=== PATIENT | male | born 1955 | race Caucasian/White ===

== ENCOUNTER 2021-04-19 09:24 | Day surgery (SDC) | payer MEDICARE ==
[2021-04-14 13:08] LABS: CLARITY,URINE CLEAR (Clear); COLOR,URINE YELLOW (Yellow); GLUCOSE, URINE NEGATIVE (Neg); PROTEIN,URINE 100 mg/dl (Neg); UA COLLECTION TYPE CLN CATCH MIDSTREAM
[2021-04-14 13:09] LABS: KETONES,URINE 40 mg/dl (Neg); LEUKOCYTE ESTERASE ,URINE NEGATIVE (Neg); NITRITES, URINE NEGATIVE (Neg); OCCULT BLOOD,URINE NEGATIVE (Neg); UROBILINOGEN,URINE 0.2 E.U/dL (0.2-1.0)
[2021-04-14 13:12] LABS: BASOPHILS % (AUTO) 0.6 % (0-1); EOSINOPHILS # (AUTO) 0.1 X10'3 (0-0.9); LYMPHOCYTES # (AUTO) 2.2 X10'3 (1.1-4.8); LYMPHOCYTES % (AUTO) 45.3 % (21-51); MEAN CORPUSCULAR HEMOGLOBIN 30.2 PG (27.0-31.0); MEAN CORPUSCULAR HGB CONC 33.8 g/dL (33.0-36.5); MEAN CORPUSCULAR VOLUME 89.3 FL (78-98); MEAN PLATELET VOLUME 7.6 FL (7.4-10.4); MONOCYTES # (AUTO) 0.6 X10'3 (0-0.9); MONOCYTES % (AUTO) 11.1 % (2-12); PRE OP HEMOGLOBIN 16.9 g/dL (14.0-17.9); PRE OP PLATELET COUNT 261 X10'3 (140-440); RED BLOOD COUNT 5.59 X10'6 (4.70-6.10); RED CELL DISTRIBUTION WIDTH 15.9 % (11.5-14.5)
[2021-04-14 13:13] LABS: BACTERIA,URINE FEW /HPF (Neg); RBC,URINE 0-2 /HPF (0-2); SQUAMOUS EPITHELIAL CELL,UR FEW /LPF (FEW); WBC,URINE 0-4 /HPF (0-4)
[2021-04-14 13:20] LABS: PRE OP PROTIME 10.7 SECONDS (9.0-12.0)
[2021-04-14 13:24] LABS: ALBUMIN 3.7 G/DL (3.4-5.0); ALBUMIN/GLOBULIN RATIO 0.8 (1.1-1.5); ALKALINE PHOSPHATASE 85 IU/L (46-116); BLOOD UREA NITROGEN 17 MG/DL (7-18); BUN/CREATININE RATIO 14.3 (5.4-32.0); CALCIUM 9.1 MG/DL (8.5-10.1); CHLORIDE 105 MMOL/L (99-107); CREATININE 1.19 MG/DL (0.60-1.10); PRE OP ALT 31 U/L (30-65); PRE OP ANION GAP 11 (8-16); PRE OP AST 21 U/L (10-37); PRE OP BILIRUB, TOTAL 0.5 MG/DL (0.0-1.0); PRE OP GLUCOSE 103 MG/DL (70-104); PRE OP POTASSIUM 4.2 MMOL/L (3.4-5.1); PRE OP SODIUM 142 MMOL/L (135-145); TOTAL CARBON DIOXIDE 25.7 MMOL/L (24-32); TOTAL PROTEIN 8.3 G/DL (6.4-8.2); eGFR 62 ML/MIN
[2021-04-19] VITALS (12 sets, daily range): BP systolic 98–158; BP diastolic 65–105
[~2021-04-19] VITALS: Ht 172.7 cm; Wt 88.0 kg
[~2021-04-19 09:24] MED LIST: NO HOME MEDS; cefazolin/dext.iso 2gm/50ml 50 ML IV ONE; famotidine 20mg tablet PO ONE; ringers solution, lacted 1,000 ML IV SCH
[2021-04-19] MEDS ORDERED: labetalol 20mg/4ml (5mg/ml) syringe IV PRN ×2 (19:20→21:00)
[2021-04-19] MEDS ORDERED: morphine 2 MG/ML inj. syringe IV PRN ×2 (19:20→21:00)
[2021-04-19] MEDS ORDERED: fentaNYL/PF 50MCG/1 ML 2ML syringe IV PRN ×2 (19:20)
[2021-04-19] MEDS ORDERED: ondansetron/PF 4mg/2ml inj IV PRN ×2 (19:20→21:00)
[2021-04-19] MEDS ORDERED: hydrALAZINE 20mg/ml inj. IV PRN (19:20)
[2021-04-19] MEDS ORDERED: ringers solution, lacted 1,000 ML IV SCH ×2 (19:20→21:00)
[2021-04-19] MEDS ORDERED: morphine 4 MG/ML inj SYRINge IV PRN (19:20)
[2021-04-19] MEDS ORDERED: BUPIVAcaine/PF 2.5mg/ml (0.25%) 10ml vial ONE (19:58)
[2021-04-19] MEDS ORDERED: ceFAZolin 1000mg inj ONE (19:59)
[2021-04-19] MEDS ORDERED: ondansetron/PF 4mg/2ml inj ONE (20:12)
[2021-04-19] MEDS ORDERED: sevoflurane 250ml liquid IH ONE (20:12)
[2021-04-19] MEDS ORDERED: fentaNYL /PF 50mcg/ml 5ml ampule ONE (20:20)
[2021-04-19] MEDS ORDERED: midazolam 1 mg/ML 2ml injection ONE (20:20)
[2021-04-19] MEDS ORDERED: propofol inj 20 ML IV ONE (20:22)
[2021-04-19] MEDS ORDERED: rocuronium 10mg/ml inj IV ONE (20:22)
[2021-04-19] MEDS ORDERED: dexamethasone sod phosphate 4mg/ml inj. ONE (20:45)
[2021-04-19] MEDS ORDERED: proCHLORperazine 10 MG/2 ml inj IV PRN (21:00)
[2021-04-19] MEDS ORDERED: meperidine/PF 25mg/ml syringe IV PRN ×3 (21:00)
[2021-04-19] MEDS ORDERED: neostigmine methylsulfate 1 MG/ML 10ml vial ONE (21:31)
[2021-04-19] MEDS ORDERED: glycopyrrolate 0.2mg/ml inj ONE (21:31)
--- NOTE | 2021-04-19 21:37 | NUR ---
Received from OR via , accompanied by Anesthesiologist DR GODINEZ and report given by Anesthesiolgist. PT WAKES TO VOICE, SKIN WARM AND PINK, MOVING EXT X 4, PT MOANING IN PAIN AND DR GODINEZ GAVE FENTANYL FROM THE OR, SCDS, 3 LAP SITES WITH DERMABOND AND KIERAN, SANG DRAINAGE FROM SITES, WASHED AREA AND PLACED 4X4'S OVER THE TOP OF LAP SITES, PIV LEFT HAND 20G 100ML/HR, VSS.
--- NOTE | 2021-04-19 21:37 | NUR ---
OR NURSE POINTED OUT RAISED AREA ON ABDOMEN THAT IS SOFT TO TOUCH. ANESTHESIOLOGIST STATED THAT IT IS A GAS BUBBLE FROM THE CO2 GAS.
[2021-04-19] MEDS: morphine 4 MG/ML inj SYRINge IV PRN ×2 (22:07→22:24)
--- NOTE | 2021-04-19 22:18 | NUR ---
Report called to receiving nurse. Transferred via BED Belongings . Special Issues communicated to receiving nurse PAT RN. PT IS AWAKE AND ORIENTED, SKIN WARM AND PINK, LAP SITE CD, SCD'S, PAIN MANAGED WITH IV PAIN MEDICATION, GAS BUBBLE ON ABD STILL PRESENT AND SOFT TO TOUCH, DARIUS ICE CHIPS, VSS, MEETS DISCHARGE CRITERIA.
[2021-04-19] MEDS ORDERED: ipratropium/albuterol 3ml nebule NEB PRN (22:25)
[2021-04-19] MEDS: normal saline 1000ml 1,000 ML IV SCH (22:45)
[2021-04-20] VITALS (8 sets, daily range): BP systolic 119–141; BP diastolic 79–102
[2021-04-20] MEDS: HYDROcodone/acetaminophen 10/325mg tab PO PRN ×3 (00:24→11:14)
--- NOTE | 2021-04-20 06:30 | NUR ---
Patient in room . I have received report from Pat RN and had the opportunity to ask questions and assume patient care.
[2021-04-20] MEDS: normal saline 1000ml 1,000 ML IV SCH (08:43)
[2021-04-20] MEDS ORDERED: HYDR-3972 PO (13:41)
--- NOTE | 2021-04-20 14:00 | NUR ---
Patient alert and oriented X3 at the time of discharge,O2 is 95 on RA. IV taken out. all personal item given back to patient. Discharge instruction given to patient. patient verbalized understanding of instruction given. hospital got a cab for patient, patient left unit with a wheel chair at 1400 accompanied by a nurse assistance to the cab.
[2021-04-21] MEDS ORDERED: OXYC-149 PO (09:19)
== END 2021-04-20 14:35 | disposition home or self-care (01) ==
LOC: PAS 09:24 → SUR 3N 22:50 → PAS 04-20 14:35
PROVIDERS: ATTEND Surgery
DX: K42.0 Umbilical hernia with obstruction, without gangrene (principal); M19.90 Unspecified osteoarthritis, unspecified site; Z20.822 Contact with and (suspected) exposure to COVID-19; Z79.899 Other long term (current) drug therapy; Z79.01 Long term (current) use of anticoagulants; Z87.891 Personal history of nicotine dependence; Z96.641 Presence of right artificial hip joint; Z86.19 Personal history of other infectious and parasitic diseases; Z80.9 Family history of malignant neoplasm, unspecified
CPT/HCPCS: 36415; 49653; 80053; 81001; 82948; 85025; 85610; 85730; 93005; 94760; C1781; J0690; J1100; J2175; J2250; J2270; J2704; J2710; J3010; J3490; J7030; J7120; U0003; U0005; Z7506; Z7508; Z7512; A4215; A4618; A7000; G0378; J2405

== ENCOUNTER 2021-04-21 08:08 | Emergency (ER) | payer MEDICARE ==
[~2021-04-21] VITALS: Ht 170.2 cm; Wt 90.9 kg
[~2021-04-21 08:08] MED LIST changes: +HYDR-3972 PO; -cefazolin/dext.iso 2gm/50ml 50 ML IV ONE; -famotidine 20mg tablet PO ONE; -ringers solution, lacted 1,000 ML IV SCH
[2021-04-21] MEDS ORDERED: morphine 2 MG/ML inj. syringe IV ONE (08:35)
[2021-04-21] MEDS ORDERED: ondansetron 4mg rapidly disintigrating tab PO ONE (08:35)
[2021-04-21 09:01] LABS: BASOPHILS % (AUTO) 0.3 % (0-1); EOSINOPHILS % (AUTO) 0.1 % (0-6); HEMATOCRIT 49.3 % (42.0-52.0); HEMOGLOBIN 16.1 g/dl (14.0-17.9); LYMPHOCYTES # (AUTO) 1.2 X10'3 (1.1-4.8); LYMPHOCYTES % (AUTO) 19.6 % (21-51); MEAN CORPUSCULAR HEMOGLOBIN 29.9 PG (27.0-31.0); MEAN CORPUSCULAR HGB CONC 32.7 g/dL (33.0-36.5); MEAN CORPUSCULAR VOLUME 91.3 FL (78-98); MEAN PLATELET VOLUME 8.1 FL (7.4-10.4); MONOCYTES # (AUTO) 0.6 X10'3 (0-0.9); MONOCYTES % (AUTO) 10.4 % (2-12); NEUTROPHILS # (AUTO) 4.2 X10'3 (1.8-7.7); NEUTROPHILS % (AUTO) 69.6 % (42-75); PLATELET COUNT 223 X10'3 (140-440); RED CELL DISTRIBUTION WIDTH 15.9 % (11.5-14.5)
[2021-04-21] MEDS ORDERED: OXYC-149 PO (09:19)
[2021-04-21 09:34] LABS: ANION GAP 8 (8-16); BLOOD UREA NITROGEN 25 MG/DL (7-18); BUN/CREATININE RATIO 18.8 (5.4-32.0); CALCIUM 8.5 MG/DL (8.5-10.1); CHLORIDE 104 MMOL/L (99-107); CREATININE 1.33 MG/DL (0.60-1.10); GLUCOSE 116 MG/DL (70-104); POTASSIUM 4.1 MMOL/L (3.5-5.1); SODIUM 138 MMOL/L (135-145); TOTAL CARBON DIOXIDE 25.9 MMOL/L (24-32); eGFR 54 ML/MIN
[2021-04-21 09:35] LABS: ALANINE AMINOTRANSFERASE 28 U/L (12-78); ALBUMIN 3.5 G/DL (3.4-5.0); ALBUMIN/GLOBULIN RATIO 0.8 (1.1-1.5); ALKALINE PHOSPHATASE 54 IU/L (46-116); ASPARTATE AMINO TRANSFERASE 37 U/L (10-37); BILIRUBIN,TOTAL 0.9 MG/DL (0.1-1.0); MAGNESIUM 2.2 MG/DL (1.5-2.4); TOTAL PROTEIN 7.7 G/DL (6.4-8.2)
[2021-04-21 09:56] LABS: D-DIMER 1.76 MG/L FEU (0-0.50)
[2021-04-21] MEDS ORDERED: iohexol 350MG/ML 100ml bottle IV ONE (10:00)
[2021-04-21 11:59] VITALS: BP 153/98
== END 2021-04-21 12:24 | disposition home or self-care (01) ==
LOC: ER 08:09
DX: G89.18 Other acute postprocedural pain (principal); R06.02 Shortness of breath; K42.9 Umbilical hernia without obstruction or gangrene; R11.0 Nausea; Z79.899 Other long term (current) drug therapy
CPT/HCPCS: 36415; 71275; 80053; 83735; 84145; 85025; 85379; 96374; 99285; J2270; Q9967

== ENCOUNTER 2021-12-26 09:07 | Emergency (ER) | payer MEDICARE ==
[~2021-12-26] VITALS: Ht 175.3 cm; Wt 93.2 kg
[~2021-12-26 09:07] MED LIST changes: -HYDR-3972 PO; +OXYC-149 PO
[2021-12-26 09:15] VITALS: BP 192/111
== END 2021-12-26 12:48 | disposition left against medical advice (07) ==
LOC: ER 09:08
DX: N20.0 Calculus of kidney (principal); Z53.21 Procedure and treatment not carried out due to patient leaving prior to being seen by health care provider

== ENCOUNTER → 2022-08-23 | Emergency (ER) | payer MEDICARE ==
[~2022-08-23] VITALS: Ht 175.3 cm; Wt 90.9 kg
[~2022-08-23] MED LIST changes: +SULF1TAB49 PO; +TETanus/Pertussis (Acell)/Diphther VAC/PF (Tdap-Adult) 0.5ml syringe IMVAC ONE; +bacitracin 15gm ointment TP ONE; +sulfamethoxazole/trimethoprim DS (800/160mg) tablet PO ONE
[2022-08-23 21:38] VITALS: BP 166/114
== END | disposition home or self-care (01) ==
LOC: ER 21:20
DX: L02.611 Cutaneous abscess of right foot (principal)
CPT/HCPCS: 10060; 90471; 90715; 99283

== ENCOUNTER 2023-06-25 16:38 | Inpatient (IN) | payer MEDICARE ==
[~2023-06-25] VITALS: Ht 175.3 cm; Wt 95.5 kg
[~2023-06-25 16:38] MED LIST changes: +ALBU8HFA INH; +LEVO750T68 PO; -OXYC-149 PO; -SULF1TAB49 PO; -TETanus/Pertussis (Acell)/Diphther VAC/PF (Tdap-Adult) 0.5ml syringe IMVAC ONE; -bacitracin 15gm ointment TP ONE; -sulfamethoxazole/trimethoprim DS (800/160mg) tablet PO ONE
[2023-06-25 18:32] LABS: BASOPHILS # (AUTO) 0.1 X10'3 (0-0.2); BASOPHILS % (AUTO) 0.7 % (0-1); EOSINOPHILS # (AUTO) 0.4 X10'3 (0-0.9); HEMATOCRIT 46.1 % (42.0-52.0); HEMOGLOBIN 15.3 g/dl (14.0-17.9); LYMPHOCYTES # (AUTO) 1.5 X10'3 (1.1-4.8); LYMPHOCYTES % (AUTO) 12.4 % (21-51); MEAN CORPUSCULAR HEMOGLOBIN 30.5 PG (27.0-31.0); MEAN CORPUSCULAR HGB CONC 33.2 g/dL (33.0-36.5); MEAN CORPUSCULAR VOLUME 91.9 FL (78-98); MEAN PLATELET VOLUME 7.6 FL (7.4-10.4); NEUTROPHILS # (AUTO) 9.3 X10'3 (1.8-7.7); NEUTROPHILS % (AUTO) 75.9 % (42-75); PLATELET COUNT 396 X10'3 (140-440); RED BLOOD COUNT 5.01 X10'6 (4.70-6.10); RED CELL DISTRIBUTION WIDTH 14.9 % (11.5-14.5); WHITE BLOOD COUNT 12.3 X10'3 (4.5-11.0)
[2023-06-25 18:46] LABS: ALANINE AMINOTRANSFERASE 81 U/L (12-78); ALBUMIN 2.3 G/DL (3.4-5.0); ALBUMIN/GLOBULIN RATIO 0.4 (1.1-1.5); ALKALINE PHOSPHATASE 67 IU/L (46-116); ANION GAP 8 (8-16); ASPARTATE AMINO TRANSFERASE 42 U/L (10-37); BILIRUBIN,TOTAL 0.8 MG/DL (0.1-1.0); BLOOD UREA NITROGEN 26 MG/DL (7-18); BUN/CREATININE RATIO 16.7 (10.0-20.0); CALCIUM 8.1 MG/DL (8.5-10.1); CHLORIDE 98 MMOL/L (99-107); CREATININE 1.56 MG/DL (0.60-1.10); GLUCOSE 119 MG/DL (70-104); MAGNESIUM 1.8 MG/DL (1.5-2.4); POTASSIUM 4.5 MMOL/L (3.5-5.1); SODIUM 133 MMOL/L (135-145); TOTAL CARBON DIOXIDE 26.8 MMOL/L (24-32); TOTAL PROTEIN 7.5 G/DL (6.4-8.2); eCRCL 47 ML/MIN; eGFR 45 ML/MIN
[2023-06-25] MEDS ORDERED: methylPREDNISolone sod succ 125mg/2ml vial IV ONE (21:15)
[2023-06-25] MEDS ORDERED: albuterol 2.5 MG/3 ML nebule NEB ONE (21:15)
[2023-06-25] MEDS ORDERED: piperacillin/tazo 3.375gm/50ml 50 ML IV ONE (21:20)
[2023-06-25] MEDS ORDERED: normal saline 1000ML IV soln IV ONE (21:20)
[2023-06-25 21:26] LABS: BILIRUBIN,URINE NEGATIVE (Neg); CLARITY,URINE CLEAR (Clear); COLOR,URINE YELLOW (Yellow); GLUCOSE, URINE NEGATIVE (Neg); KETONES,URINE TRACE mg/dl (Neg); LEUKOCYTE ESTERASE ,URINE NEGATIVE (Neg); NITRITES, URINE NEGATIVE (Neg); OCCULT BLOOD,URINE NEGATIVE (Neg); PH,URINE 5.5 (4.8-8.0); PROTEIN,URINE 30 mg/dl (Neg); UROBILINOGEN,URINE 0.2 E.U/dL (0.2-1.0)
[2023-06-25 21:27] LABS: UA COLLECTION TYPE CLN CATCH MIDSTREAM
[2023-06-25 21:33] VITALS: PULSE 110; RESP 24; O2SAT 91
[2023-06-25 21:44] LABS: BACTERIA,URINE FEW /HPF (Neg); HYALINE CASTS 0-3 /LPF (NEGATIVE); MUCUS STRANDS MODERATE /LPF (Neg); RBC,URINE 0-2 /HPF (0-2); SQUAMOUS EPITHELIAL CELL,UR FEW /LPF (FEW); WBC,URINE 0-4 /HPF (0-4)
[2023-06-25 21:45] LABS: FINE GRANULAR CAST 0-3 /LPF (NEGATIVE)
[2023-06-25] MEDS ORDERED: vancomycin/NS 1 GM ADD-VANTAGE 250 ML IV ONE (22:00)
[2023-06-25] MEDS ORDERED: VANCOMYCIN 750MG IV in NS 250 ML IV ONE (23:30)
[2023-06-26] VITALS (7 sets, daily range): BP systolic 122–150; BP diastolic 61–92; PULSE 95–100; RESP 16–21; TEMP 97.8–98; O2SAT 91–97
[2023-06-26 00:33] LABS: PLATELET ESTIMATE NORMAL; TOTAL CELLS COUNTED 100
[2023-06-26 00:34] LABS: TOXIC GRANULATION 1+; TOXIC VACUOLATION FEW
[2023-06-26] MEDS ORDERED: diphenhydrAMINE 25mg capsule PO PRN (01:55)
[2023-06-26] MEDS ORDERED: acetaminophen 325mg tablet PO PRN ×2 (01:55)
[2023-06-26] MEDS ORDERED: bisacodyl 10mg suppository rectal RC PRN (01:55)
[2023-06-26] MEDS ORDERED: acetaminophen 650mg rectal suppository RC PRN (01:55)
[2023-06-26] MEDS ORDERED: magnesium hydroxide 30ml (MOM) UD suspension PO PRN (01:55)
[2023-06-26] MEDS ORDERED: ondansetron 4mg rapidly disintigrating tab PO PRN (01:55)
[2023-06-26] MEDS ORDERED: ondansetron/PF 4mg/2ml inj IV PRN (01:55)
[2023-06-26] MEDS ORDERED: ipratropium/albuterol 3ml nebule NEB PRN (01:55)
[2023-06-26] MEDS ORDERED: diphenhydrAMINE 50 mg/ml inj IV PRN (01:55)
[2023-06-26] MEDS ORDERED: mag hydrox/Alum hydrox/simeth 30ml oral suspension PO PRN (01:55)
[2023-06-26] MEDS ORDERED: morphine 2 MG/ML inj. syringe IV PRN (01:55)
[2023-06-26] MEDS: normal saline 1000ml 1,000 ML IV SCH ×3 (02:47→21:55)
[2023-06-26] MEDS: pantoprazole 40mg Tablet.DR PO SCH (07:30)
[2023-06-26 07:34] LABS: INR 3.7 INR; PROTHROMBIN TIME 36.6 SECONDS (9.0-12.0)
[2023-06-26] MEDS: docusate sod 100mg capsule PO SCH ×2 (08:00→20:00)
[2023-06-26] MEDS: heparin, porcine 5000 units/ml vial SQ SCH ×2 (08:00→21:30)
[2023-06-26] MEDS ORDERED: levoFLOXACIN-Levaquin 500mg/D5 100 ML IV SCH (08:00)
[2023-06-26] MEDS: methylPREDNISolone sod succ 125mg/2ml vial IV SCH ×3 (08:54→21:42)
[2023-06-26] MEDS ORDERED: vancomycin/NS 1 GM ADD-VANTAGE 250 ML IV SCH (10:00)
[2023-06-26 10:27] LABS: PHOSPHORUS 2.5 MG/DL (2.3-4.5); THYROID STIMULATING HORMONE 0.2 ulU/ml (0.34-4.50)
[2023-06-27] VITALS (14 sets, daily range): BP systolic 145–185; BP diastolic 74–99; PULSE 85–120; RESP 16–20; TEMP 96.7–98; O2SAT 92–97
[2023-06-27] MEDS: temazepam 15mg capsule PO PRN ×2 (06:42→21:12)
[2023-06-27 07:18] LABS: BASOPHILS % (AUTO) 0.2 % (0-1); EOSINOPHILS % (AUTO) 0 % (0-6); HEMATOCRIT 42.2 % (42.0-52.0); HEMOGLOBIN 14.2 g/dl (14.0-17.9); LYMPHOCYTES # (AUTO) 0.8 X10'3 (1.1-4.8); LYMPHOCYTES % (AUTO) 4.2 % (21-51); MEAN CORPUSCULAR HEMOGLOBIN 30.9 PG (27.0-31.0); MEAN CORPUSCULAR HGB CONC 33.6 g/dL (33.0-36.5); MEAN CORPUSCULAR VOLUME 91.9 FL (78-98); MEAN PLATELET VOLUME 7.7 FL (7.4-10.4); MONOCYTES # (AUTO) 0.5 X10'3 (0-0.9); MONOCYTES % (AUTO) 2.9 % (2-12); NEUTROPHILS # (AUTO) 17.6 X10'3 (1.8-7.7); NEUTROPHILS % (AUTO) 92.7 % (42-75); PLATELET COUNT 446 X10'3 (140-440); RED BLOOD COUNT 4.59 X10'6 (4.70-6.10); WHITE BLOOD COUNT 18.9 X10'3 (4.5-11.0)
[2023-06-27 07:49] LABS: ALANINE AMINOTRANSFERASE 74 U/L (12-78); ALBUMIN 2.2 G/DL (3.4-5.0); ALBUMIN/GLOBULIN RATIO 0.4 (1.1-1.5); ALKALINE PHOSPHATASE 62 IU/L (46-116); ANION GAP 8 (8-16); ASPARTATE AMINO TRANSFERASE 66 U/L (10-37); BILIRUBIN,TOTAL 0.5 MG/DL (0.1-1.0); BLOOD UREA NITROGEN 40 MG/DL (7-18); BUN/CREATININE RATIO 30.3 (10.0-20.0); CALCIUM 8.4 MG/DL (8.5-10.1); CHLORIDE 105 MMOL/L (99-107); CREATININE 1.32 MG/DL (0.60-1.10); GLUCOSE 122 MG/DL (70-104); POTASSIUM 4.6 MMOL/L (3.5-5.1); SODIUM 136 MMOL/L (135-145); TOTAL CARBON DIOXIDE 22.9 MMOL/L (24-32); TOTAL PROTEIN 7.5 G/DL (6.4-8.2); eCRCL 55 ML/MIN; eGFR 54 ML/MIN
[2023-06-27] MEDS: docusate sod 100mg capsule PO SCH ×2 (08:00→21:12)
[2023-06-27] MEDS: levoFLOXACIN-Levaquin 250mg/D5 50 ML IV SCH (08:11)
[2023-06-27] MEDS: normal saline 1000ml 1,000 ML IV SCH ×3 (08:11→22:09)
[2023-06-27] MEDS: pantoprazole 40mg Tablet.DR PO SCH (08:12)
[2023-06-27] MEDS: methylPREDNISolone sod succ 125mg/2ml vial IV SCH ×3 (08:12→22:08)
[2023-06-27] MEDS: heparin, porcine 5000 units/ml vial SQ SCH ×2 (08:12→21:14)
[2023-06-27] MEDS ORDERED: ipratropium/albuterol 3ml nebule NEB SCH (13:35)
[2023-06-27] MEDS: ipratropium/albuterol 3ml nebule NEB SCH ×2 (19:11→23:22)
[2023-06-28] VITALS (17 sets, daily range): BP systolic 148–188; BP diastolic 76–92; PULSE 51–102; RESP 15–28; TEMP 97.6–98.7; O2SAT 93–96
[2023-06-28] MEDS: ipratropium/albuterol 3ml nebule NEB SCH ×5 (03:29→20:11)
[2023-06-28 06:08] LABS: BASOPHILS % (AUTO) 0.1 % (0-1); EOSINOPHILS % (AUTO) 0 % (0-6); HEMATOCRIT 39.4 % (42.0-52.0); LYMPHOCYTES # (AUTO) 0.5 X10'3 (1.1-4.8); LYMPHOCYTES % (AUTO) 4.9 % (21-51); MEAN CORPUSCULAR HEMOGLOBIN 30.4 PG (27.0-31.0); MEAN CORPUSCULAR HGB CONC 32.9 g/dL (33.0-36.5); MEAN CORPUSCULAR VOLUME 92.4 FL (78-98); MEAN PLATELET VOLUME 7.3 FL (7.4-10.4); MONOCYTES # (AUTO) 0.5 X10'3 (0-0.9); MONOCYTES % (AUTO) 4.8 % (2-12); NEUTROPHILS # (AUTO) 9.6 X10'3 (1.8-7.7); NEUTROPHILS % (AUTO) 90.2 % (42-75); PLATELET COUNT 385 X10'3 (140-440); RED BLOOD COUNT 4.27 X10'6 (4.70-6.10); RED CELL DISTRIBUTION WIDTH 14.6 % (11.5-14.5); WHITE BLOOD COUNT 10.7 X10'3 (4.5-11.0)
[2023-06-28 06:26] LABS: ALANINE AMINOTRANSFERASE 125 U/L (12-78); ALBUMIN/GLOBULIN RATIO 0.4 (1.1-1.5); ALKALINE PHOSPHATASE 66 IU/L (46-116); ANION GAP 8 (8-16); ASPARTATE AMINO TRANSFERASE 113 U/L (10-37); BILIRUBIN,TOTAL 0.3 MG/DL (0.1-1.0); BLOOD UREA NITROGEN 44 MG/DL (7-18); BUN/CREATININE RATIO 33.3 (10.0-20.0); CALCIUM 7.9 MG/DL (8.5-10.1); CHLORIDE 107 MMOL/L (99-107); CREATININE 1.32 MG/DL (0.60-1.10); GLUCOSE 140 MG/DL (70-104); POTASSIUM 4.1 MMOL/L (3.5-5.1); SODIUM 138 MMOL/L (135-145); TOTAL CARBON DIOXIDE 22.8 MMOL/L (24-32); TOTAL PROTEIN 6.6 G/DL (6.4-8.2); eCRCL 55 ML/MIN; eGFR 54 ML/MIN
[2023-06-28] MEDS: docusate sod 100mg capsule PO SCH ×2 (08:00→20:00)
[2023-06-28] MEDS: levoFLOXACIN-Levaquin 250mg/D5 50 ML IV SCH (08:18)
[2023-06-28] MEDS: methylPREDNISolone sod succ 125mg/2ml vial IV SCH (08:18)
[2023-06-28] MEDS: pantoprazole 40mg Tablet.DR PO SCH (08:41)
[2023-06-28] MEDS: heparin, porcine 5000 units/ml vial SQ SCH ×2 (08:42→20:44)
[2023-06-28] MEDS ORDERED: hydrALAZINE 20mg/ml inj. IV ONE (12:15)
[2023-06-28] MEDS: HYDROcodone/acetaminophen 5mg/325mg tablet PO PRN ×2 (16:20→20:44)
[2023-06-29 00:21] VITALS: PULSE 87; RESP 20; O2SAT 93
[2023-06-29] MEDS: ipratropium/albuterol 3ml nebule NEB SCH ×3 (00:21→07:17)
[2023-06-29 00:28] VITALS: PULSE 93; RESP 18
[2023-06-29] MEDS: temazepam 15mg capsule PO PRN (02:06)
[2023-06-29 03:36] VITALS: PULSE 79; RESP 18; O2SAT 93
[2023-06-29 03:43] VITALS: PULSE 74; RESP 18
[2023-06-29 07:11] VITALS: BP 156/108; PULSE 97; RESP 24; TEMP 97.4; O2SAT 94
[2023-06-29 07:25] LABS: BASOPHILS % (AUTO) 0.1 % (0-1); EOSINOPHILS % (AUTO) 0 % (0-6); HEMATOCRIT 45.7 % (42.0-52.0); HEMOGLOBIN 14.9 g/dl (14.0-17.9); LYMPHOCYTES # (AUTO) 1.3 X10'3 (1.1-4.8); LYMPHOCYTES % (AUTO) 16.3 % (21-51); MEAN CORPUSCULAR HEMOGLOBIN 30.1 PG (27.0-31.0); MEAN CORPUSCULAR HGB CONC 32.6 g/dL (33.0-36.5); MEAN CORPUSCULAR VOLUME 92.3 FL (78-98); MEAN PLATELET VOLUME 7.5 FL (7.4-10.4); MONOCYTES # (AUTO) 0.9 X10'3 (0-0.9); MONOCYTES % (AUTO) 11.2 % (2-12); NEUTROPHILS # (AUTO) 5.9 X10'3 (1.8-7.7); NEUTROPHILS % (AUTO) 72.4 % (42-75); PLATELET COUNT 453 X10'3 (140-440); RED BLOOD COUNT 4.96 X10'6 (4.70-6.10); RED CELL DISTRIBUTION WIDTH 14.9 % (11.5-14.5); WHITE BLOOD COUNT 8.2 X10'3 (4.5-11.0)
[2023-06-29 07:56] LABS: ALANINE AMINOTRANSFERASE 204 U/L (12-78); ALBUMIN 2.4 G/DL (3.4-5.0); ALBUMIN/GLOBULIN RATIO 0.5 (1.1-1.5); ALKALINE PHOSPHATASE 71 IU/L (46-116); ANION GAP 10 (8-16); ASPARTATE AMINO TRANSFERASE 161 U/L (10-37); BILIRUBIN,TOTAL 0.7 MG/DL (0.1-1.0); BLOOD UREA NITROGEN 43 MG/DL (7-18); BUN/CREATININE RATIO 30.7 (10.0-20.0); CALCIUM 8.6 MG/DL (8.5-10.1); CHLORIDE 103 MMOL/L (99-107); GLUCOSE 92 MG/DL (70-104); POTASSIUM 4.5 MMOL/L (3.5-5.1); SODIUM 139 MMOL/L (135-145); TOTAL PROTEIN 7.7 G/DL (6.4-8.2); eCRCL 52 ML/MIN; eGFR 51 ML/MIN
[2023-06-29] MEDS: docusate sod 100mg capsule PO SCH (08:00)
[2023-06-29] MEDS: heparin, porcine 5000 units/ml vial SQ SCH (09:03)
[2023-06-29] MEDS: levoFLOXACIN-Levaquin 250mg/D5 50 ML IV SCH (09:03)
[2023-06-29] MEDS: pantoprazole 40mg Tablet.DR PO SCH (09:12)
[2023-06-29 09:15] VITALS: RESP 18
[2023-06-29] MEDS ORDERED: LEVO-65 PO (09:23)
[2023-06-29] MEDS ORDERED: PRED20TA PO (09:28)
[2023-06-29] MEDS ORDERED: ALBU8HFA PO (09:28)
== END 2023-06-29 10:30 | disposition home or self-care (01) | DRG 871 ==
LOC: ER 16:39 → ED HOLD 06-26 02:03 → ORTHO 4S 06-26 04:40
PROVIDERS: ADMIT Family Medicine; ATTEND Family Medicine
DX: A40.3 Sepsis due to Streptococcus pneumoniae (principal); J18.9 Pneumonia, unspecified organism; J96.01 Acute respiratory failure with hypoxia; N17.0 Acute kidney failure with tubular necrosis; J44.0 Chronic obstructive pulmonary disease with (acute) lower respiratory infection; J44.1 Chronic obstructive pulmonary disease with (acute) exacerbation; E87.1 Hypo-osmolality and hyponatremia; F15.10 Other stimulant abuse, uncomplicated; E11.9 Type 2 diabetes mellitus without complications; E86.0 Dehydration; E88.09 Other disorders of plasma-protein metabolism, not elsewhere classified; I27.20 Pulmonary hypertension, unspecified; N18.30 Chronic kidney disease, stage 3 unspecified; I50.9 Heart failure, unspecified; Z87.891 Personal history of nicotine dependence; Z87.01 Personal history of pneumonia (recurrent); Z71.51 Drug abuse counseling and surveillance of drug abuser
CPT/HCPCS: 36415; 71045; 80053; 81001; 83605; 83735; 83880; 84100; 84145; 84443; 84484; 85007; 85025; 85379; 85610; 87040; 87070; 87081; 94640; 94760; 99285; G0378; J0360; J1644; J1956; J2543; J2930; J3370; J7030; J7050

== ENCOUNTER 2023-07-04 09:49 | Emergency (ER) | payer MEDICARE ==
[~2023-07-04] VITALS: Ht 175.3 cm; Wt 87.4 kg
[~2023-07-04 09:49] MED LIST changes: -ALBU8HFA INH; +ALBU8HFA PO; +LEVO-65 PO; -LEVO750T68 PO; -NO HOME MEDS; +PRED20TA PO
[2023-07-04] MEDS ORDERED: ALBU18HF2 INH (10:51)
[2023-07-04 11:04] VITALS: BP 136/79; PULSE 98; RESP 18; TEMP 98; O2SAT 97
== END 2023-07-04 20:26 | disposition home or self-care (01) ==
LOC: ER 09:50
DX: R06.02 Shortness of breath (principal); R50.9 Fever, unspecified; E11.9 Type 2 diabetes mellitus without complications; F15.10 Other stimulant abuse, uncomplicated; Z79.899 Other long term (current) drug therapy
CPT/HCPCS: 71046; 99283